=== PATIENT | male | born 2000 | race African-American/Black ===

== ENCOUNTER 2025-08-14 20:53 | Emergency (ER) | payer SELFPAY ==
[~2025-08-14] VITALS: Ht 177.8 cm; Wt 66.0 kg
[2025-08-14 21:11] VITALS: O2SAT 100
[2025-08-14] MEDS ORDERED: IBUP-2030 MT (22:24)
[2025-08-14] MEDS: DEXAMETHASONE 10 MG/ML VIAL IV ONE (22:35)
[2025-08-14] MEDS: IBUPROFEN 800MG TABLET PO ONE (22:39)
[2025-08-14 22:42] VITALS: BP 109/78; PULSE 66; RESP 16; TEMP 37; O2SAT 100
== END 2025-08-14 22:46 | disposition home or self-care (01) ==
LOC: ER 20:53
DX: K08.89 Other specified disorders of teeth and supporting structures (principal)
CPT/HCPCS: 99283; 96374; J1100